=== PATIENT | male | born 1955 | race Caucasian/White ===

== ENCOUNTER 2023-04-03 19:48 | Emergency (ER) | payer OTHER, SELFPAY ==
--- NOTE | ~2023-04-03 | XR_ITS ---
EXAMINATION: XR FOOT, RIGHT CLINICAL INFORMATION: Great toe pain. COMPARISON: None available. TECHNIQUE: AP, lateral, and oblique views of the right foot. FINDINGS: Diffuse osteopenia limits evaluation. Alignment is anatomic. Diffuse interphalangeal joint space narrowing. Mild first MTP joint space narrowing. No destructive bone lesion. No periosteal reaction. No displaced fractures. Large posterior and plantar calcaneal spurs. XR/XR foot RT min 3V IMPRESSION: No acute abnormality.
[2023-04-03 19:51] VITALS: BP 144/75; PULSE 105; RESP 18; TEMP 37.2; O2SAT 94; BMI 31.6
--- NOTE | 2023-04-03 20:00 | ED_ITS ---
HPI - General Adult General Chief complaint: Extremity Problem Stated complaint: R toe pain Time Seen by Provider: 04/03/23 22:28 Source: patient Mode of arrival: ambulatory Limitations: no limitations History of Present Illness HPI narrative: Patient comes to the emergency room complaining of an embedded toenail on the right great toe that it is infected. It has been present for about 4 days. Denies fever chills Related Data Home Medications Medication Instructions Recorded Confirmed magnesium citrate ml PO 10/19/21 10/19/21 Previous Rx's Medication Instructions Recorded allopurinol 300 mg tablet 300 mg PO DAILY #90 tabs 10/19/21 amlodipine 2.5 mg tablet 2.5 mg PO DAILY #90 tabs 10/19/21 clotrimazole 1 % topical cream 1 appl topical QAM AND QHS #30 10/19/21 grams gabapentin 300 mg capsule 300 mg PO BID 90 days #180 caps 10/19/21 atorvastatin 40 mg tablet 40 mg PO BEDTIME #90 tabs 03/23/22 calcium carbonate 200 mg calcium 200 mg PO DAILY #90 tabs 03/23/22 (500 mg) chewable tablet (Antoine-Gest Antacid) docusate sodium 100 mg capsule 100 mg PO BID #180 caps 03/23/22 fluoxetine 40 mg capsule 40 mg PO BEDTIME #90 caps 03/23/22 lisinopril 40 mg tablet 40 mg PO DAILY #90 tabs 03/23/22 sennosides 8.6 mg tablet (senna) 17.2 mg PO DAILY PRN for 08/03/22 constipation #60 tabs methocarbamol 750 mg tablet 750 mg PO BEDTIME PRN for pain #30 09/13/22 tabs acetaminophen 500 mg tablet 500 mg PO Q6H PRN for pain #90 tabs 11/21/22 cephalexin 500 mg capsule 500 mg PO BID #14 caps 04/04/23 doxycycline hyclate 100 mg tablet 100 mg PO BID #14 tabs 04/04/23 Allergies Allergy/AdvReac Type Severity Reaction Status Date / Time No Known Allergies Allergy Verified 10/19/21 14:59 Review of Systems Review of Systems: Constitutional : No Weight loss, No Fever, No Chills, No Night Sweats, No Fatigue, No Malaise ENT/Mouth : No Hearing loss, No Ear Pain, No Nasal Congestion, No Sinus Pain, No Hoarseness, No sore throat, No Rhinorrhea, No Swallowing Difficulty Eyes: No Eye Pain, No Swelling, No Redness, No Foreign Body, No Discharge, No Vision Changes Cardiovascular : No Chest Pain, No SOB, No Dyspnea on Exertion, No Orthopnea, No Edema, No Palpitations Respiratory : No Cough, No Sputum, No Wheezing, No Smoke Exposure, No Dyspnea Gastrointestinal : No Nausea, No Vomiting, No Diarrhea, No Constipation, No abdominal Pain, No Hematochezia, No Melena Genitourinary : no irregular bleeding, No Dysuria, No Urinary Frequency, No Hematuria, No Urinary Incontinence, No Urgency, No Flank Pain, No Urinary Flow Changes, No Hesitancy Musculoskeletal : No joint pain, No Myalgias, No Joint Swelling Skin : Complaining of an infected toenail Neuro : No Weakness, No Numbness, No Paresthesias, No Loss of Consciousness, No Dizziness, No Headache Psych : No Anxiety/Panic, No Depression, No SI/HI/AH/VH, No Social Issues, Heme/Lymph: No Bruising, No Bleeding,No Lymphadenopathy Endocrine : No Polyuria, No Polydipsia, No Temperature Intolerance [facility] Past Medical History Medical History HTN (hypertension) Skin cancer Family History Family History (Updated 10/19/21 @ 14:33 by Alejandra Rodirguez CMA) Mother Breast cancer Father Alcoholism Social History Social History (Updated 10/19/21 @ 14:33 by Alejandra Rodriguez CMA) Household Members: Children Housing: House Alcohol intake: never Patient Tobacco Use Status: Never used Tobacco Advance Directives: No Advance Directives Information Provided: No Physical Exam ED Vital Signs: Vital Signs - 24 hr 04/03/23 19:51 Temperature 98.9 F Pulse Rate 105 H Respiratory Rate 18 Blood Pressure 144/75 H Pulse Oximetry 94 Oxygen Delivery Method Room Air BMI result Body Mass Index 31.6 Const Other: Appearance: Alert. Oriented X3. No acute distress. Eyes: Pupils equal, round and reactive to light. ENT: Pharynx normal. Neck: Normal inspection. Neck supple. No lymph nodes noted. No crepitus CVS: Normal heart rate and rhythm. Pulses normal. Normal S1 and S2 Respiratory: No respiratory distress. Breath sounds normal. No Wheezing. No rales Abdomen: Soft and nontender. No rigidity. No distention. Skin: Patient has an infected and bedded toenail on the great toe, there is pus present Extremities: No lower extremity edema. No Lacerations. No Rash Neuro: Oriented X 3. No motor deficit. No sensory deficit. Moving all extre mities. No slurred speech. CN 2 through 12 grossly intact Psych: calm, cooperative, normal affect Course Course Course Narrative: 67-year-old male presents for evaluation of right great toe pain. Patient denies any injury. Appears to have a paronychia to the lateral aspect. Plan for x-ray of the toe Medications Administered Discontinued Medications Generic Name Dose Route Start Last Admin Trade Name Freq PRN Reason Stop Dose Admin Lidocaine HCl 10 ml 04/03/23 22:54 04/03/23 23:28 Lidocaine Hcl 2% 2 Ml Vial INFILTRATI 04/03/23 22:55 10 ml ONCE ONE Administration Medical Decision Making Medical Decision Making [facility] Narrative: -patient's toe was anesthetized with 2% lidocaine without epinephrine -1/4 of the lateral aspect of the toenail of the great toe was removed, patient tolerated well the procedure. Bacitracin was applied. Also, patient was given p.o. doxycycline and ceftriaxone -patient was instructed to have close follow-up with his wilderness guide, patient is at high risk of further notes getting imbedded Discharge Plan Discharge Clinical Impression: Embedded toenail, Cellulitis Patient Disposition: Home, Self-Care Instructions: Ingrown Nail (ED) Additional Instructions: Please follow-up with your primary care physician tomorrow. If you have any worsening or new symptoms, please return to the emergency room or call 911 Prescriptions: New cephalexin 500 mg capsule 500 mg PO BID Qty: 14 0RF doxycycline hyclate 100 mg tablet 100 mg PO BID Qty: 14 0RF No Action atorvastatin 40 mg tablet 40 mg PO BEDTIME Qty: 90 1RF fluoxetine 40 mg capsule 40 mg PO BEDTIME Qty: 90 1RF lisinopril 40 mg tablet 40 mg PO DAILY Qty: 90 1RF calcium carbonate [Antoine-Gest Antacid] 200 mg calcium (500 mg) tablet,chewable 200 mg PO DAILY Qty: 90 1RF docusate sodium 100 mg capsule 100 mg PO BID Qty: 180 1RF sennosides [senna] 8.6 mg tablet 17.2 mg PO DAILY PRN (Reason: for constipation) Qty: 60 0RF methocarbamol 750 mg tablet 750 mg PO BEDTIME PRN (Reason: for pain) Qty: 30 0RF acetaminophen 500 mg tablet 500 mg PO Q6H PRN (Reason: for pain) Qty: 90 0RF magnesium citrate Solution PO allopurinol 300 mg tablet 300 mg PO DAILY Qty: 90 1RF amlodipine 2.5 mg tablet 2.5 mg PO DAILY Qty: 90 1RF clotrimazole 1 % cream 1 appl topical QAM AND QHS Qty: 30 0RF gabapentin 300 mg capsule 300 mg PO BID 90 Days Qty: 180 1RF
[2023-04-04] MEDS: Bacitracin Oint 0.9 GM PACKET 1 APPL TOPICAL (00:19)
[2023-04-04] MEDS: Doxycycline Monohydrate 100 MG CAPSULE PO (00:19)
[2023-04-04] MEDS: cephALEXin 500 MG CAPSULE PO (00:19)
== END 2023-04-04 00:37 | disposition home or self-care (01) ==
PROVIDERS: Emergency Provider Emergency Medicine; PCP Internal Medicine
DX: L60.0 Ingrowing nail (principal); L03.031 Cellulitis of right toe; Z79.899 Other long term (current) drug therapy
CPT/HCPCS: 11750; 11765; 73630; 99282; 99284

== ENCOUNTER 2025-07-23 13:00 | Emergency (ER) | payer MEDICARE, MEDICAID, SELFPAY ==
--- NOTE | ~2025-07-23 | XR_ITS ---
EXAMINATION: XR HIP 1 VIEW RIGHT WITH PELVIS HISTORY: pain, injury COMPARISON: There are no prior studies available for comparison. FINDINGS: Two AP views of the pelvis and two views of the right hip are submitted. Osseous mineralization is normal. There is no fracture or dislocation. There is mild osteoarthritis of both hips with joint space narrowing and osteophyte formation. The soft tissues are unremarkable. XR/XR hip RT w PEL1V IMPRESSION: No evidence of fracture of the right hip. Electronically signed by: Jos Grimes MD 07/23/2025 01:56 PM EDT
--- NOTE | ~2025-07-23 | CT_ITS ---
EXAMINATION: CT CERVICAL SPINE WITHOUT CONTRAST CLINICAL INFORMATION: Fall, head strike COMPARISON: None available. TECHNIQUE: Spiral CT imaging of the cervical spine performed in axial plane without contrast. Multiplanar reformatted images were constructed from the axial data set. This CT examination was performed using dose optimization techniques as appropriate, variously including the following: *Automated exposure control *Adjustment of mA and/or kV according to patient size (this includes techniques or standardized protocols for targeted exams where dose is matched to indication/reason for exam; i.e. extremities or head) *Use of iterative reconstruction technique FINDINGS: CORONAL ALIGNMENT: -There is a minimal right convex scoliosis. SAGITTAL ALIGNMENT: -There is a minimal reversal of the normal lordosis. -There is no traumatic subluxation. C1-C2 AND CRANIOCERVICAL JUNCTION: -Intact and aligned. There are advanced degenerative changes in the atlantoaxial joint. VERTEBRAL BODIES AND FACETS: -There is no fracture, compression deformity, or suspicious bone lesion. -There is normal facet alignment bilaterally. There are multilevel degenerative facet changes. -There are large ventral vertebral and disc osteophytes spanning C1-2, and C4-T1. -There is ossification of the posterior longitudinal ligament at C2-3, C3-4, and to lesser degree at C4-5. This results in at least moderate central canal stenosis at these levels. Dated there appears to be partial disc space bony fusion inferiorly of C5-T1. -Above findings are suspicious for underlying DISH. DISCS: -There is moderate multilevel disc degeneration present throughout the cervical region. CENTRAL CANAL: -Evaluation limited by modality. See above. PREVERTEBRAL AND PARAVERTEBRAL SOFT TISSUES: -There is no prevertebral or paravertebral soft tissue swelling, edema, or abnormal fluid collection. -There has been a subtotal thyroidectomy. There is some residual thyroid tissue left posterior lobe. -There is a retropharyngeal course of the left ICA proximally. -There is an oval mass superficial left parotid gland measuring 2.9 x 2.8 cm in axial plane. LUNG APICES: -Not included on the imaging. CT/CT cervical spine wo IV con IMPRESSION: 1. No CT evidence of acute cervical spine fracture or injury. 2. Findings in keeping with DISH. Ossification of the posterior longitudinal ligament present at C2-3 and C3-4, causing at least moderate and possibly severe central canal stenosis at these levels. 3. There is partial bony fusion of the ventral disc spaces of C5-T1 by bridging vertebral and disc osteophytes. 4. There is a partially imaged oval mass in the left superficial parotid gland measuring 2.9 x 2.8 cm. Differential includes benign mixed tumor, Warthin's tumor, or parotid malignancy. Correlate with any known history. 5. There has been a subtotal thyroidectomy. There is some residual thyroid tissue in the left posterior thyroid region. Electronically signed by: Enoch Palmer MD 07/23/2025 02:35 PM EDT
--- NOTE | ~2025-07-23 | CT_ITS ---
EXAMINATION: CT HEAD WITHOUT IV CONTRAST HISTORY: fall, HS. TECHNIQUE: Unenhanced helical CT of the head was performed per standard departmental protocol. Coronal and sagittal reformats of the head were also evaluated. One or more of the following techniques was used for dose reduction: Automated exposure control, adjustment of the mA and/or kV according to patient size, use of iterative reconstruction technique. DLP: 1102 mGy-cm COMPARISON: There are no prior studies available for comparison. FINDINGS: BRAIN: There is diffuse prominence of the ventricular system and cortical sulci, consistent with atrophy. Periventricular and subcortical white matter hypodensities are noted which are nonspecific, but often seen in the setting of small vessel ischemic disease. There is no mass effect or midline shift. No intra- or extra-axial fluid collections are identified. SINUSES: There is hyperdense fluid in the bilateral sphenoid sinuses. The mastoid air cells and middle ear cavities are well pneumatized. ORBITS: The visualized orbits are unremarkable. BONES/SOFT TISSUES: There is a partially imaged 2.8 cm mass of the left parotid gland. The calvarium is intact. No suspicious lytic or sclerotic lesions. CT/CT head/brain wo IV con IMPRESSION: 1. No acute intracranial abnormality. 2. Hyperdense fluid in the bilateral sphenoid sinuses. 3. 2.8 cm partially imaged left parotid mass. Clinical correlation is recommended. ENT evaluation is suggested. Electronically signed by: Jos Grimes MD 07/23/2025 02:20 PM EDT
--- NOTE | 2025-07-23 13:15 | ED_ITS ---
HPI - General Adult General Chief complaint: Fall Stated complaint: FALL,?HS,-LOC,-THINNER,R HIP PAIN PER EMS Time Seen by Provider: 07/23/25 13:15 Source: patient, family (patient's son) and EMS Mode of arrival: EMS Limitations: no limitations History of Present Illness ED Provider: Sumi Rivas PA-C HPI narrative: This is a 70 year old male with a history of PTEN gene mutation causing tumors, chronic knee and low back pain, gout, and hypertension that presents for evaluation post mechanical fall. He reports that around 11:30 am he was lowering himself into his wheelchair when he missed and fell. He states that his right hip is the primary location that he has pain. He is unsure if he hit his head but he denies headache, dizziness, nausea, vomiting, or vision changes. He was unable to get up so he was transferred here via ambulance. He is able to ambulate with a cane at baseline but also uses a wheelchair. He has a history of many tumors and he is nervous that he may have another tumor in the right hip where he fell. Related Data Home Medications ?Medication ?Instructions ?Recorded ?Confirmed allopurinol 300 mg tablet 300 mg PO BEDTIME 07/23/25 1 amlodipine 5 mg tablet 5 mg PO BEDTIME 07/23/2507/09 cholecalciferol (vitamin D3) 50 50 mcg PO BEDTIME 07/0907/23/25 mcg (2,000 unit) tablet gabapentin 300 mg capsule 600 mg PO BEDTIME 07/23/25 1 levothyroxine 175 mcg tablet 175 mcg PO BEDTIME 07/23/25 lisinopril 40 mg tablet 40 mg PO BEDTIME 07/23/25 trazodone 100 mg tablet 100 mg PO BEDTIME 07/23/25 1 Previous Rx's ?Medication ?Instructions ?Recorded atorvastatin 40 mg tablet 40 mg PO BEDTIME #90 tabs fluoxetine 40 mg capsule 40 mg PO BEDTIME #90 caps methocarbamol 750 mg tablet 750 mg PO BEDTIME PRN for pain #30 09/13/22 tabs Allergies Allergy/AdvReac Type Severity Reaction Status Date / Time No Known Allergies Allergy Verified 07/23/25 13:19 Review of Systems Constitutional: Constitutional: Reports as per HPI Eyes: Eyes: Reports as per HPI ENT: Reports as per HPI Cardiovascular: Cardiovascular: Reports as per HPI Respiratory: Respiratory: Reports as per HPI Gastrointestinal: Gastrointestinal: Reports as per HPI Genitourinary: Genitourinary: Reports as per HPI Musculoskeletal: Musculoskeletal: Reports as per HPI Integumentary/Breasts: Skin/Breast: Reports as per HPI Neurologic: Reports as per HPI Psychiatric: Psychiatric: Reports as per HPI Endocrine: Endocrine: Reports as per HPI Hematologic/Lymphatic: Hematologic/Lymphatic: Reports as per HPI Allergic/Immunologic: Allergic/Immunologic: Reports as per HPI [facility] Past Medical History Attestation statement: The following information was validated with the patient. (all information validated with the patient's son) Source: old records reviewed, obtained from family (patient's son provided additional history and confirmed the history provided by the patient. ) and nursing notes reviewed Medical History Skin cancer HTN (hypertension) Family History Family History Mother Breast cancer Father Alcoholism Social History Social History Household Members: Children Housing: House Alcohol intake: never Patient Tobacco Use Status: Never used Tobacco Smoked in Last 30 Days: No Use of substances other than those prescribed or required for medical reasons: No Advance Directives: Yes Advance Directives on File: Yes Advance Directives Date on File: 07/24/25 Physical Exam ED Vital Signs: Vital Signs - 24 hr 07/25/25 22:03 07/26/25 13:27 07/26/25 17:42 Temperature 98.7 F 98.0 F 98.9 F Pulse Rate 83 81 88 Respiratory Rate 16 18 18 Blood Pressure 131/57 L 102/57 L 123/62 Pulse Oximetry 93 97 94 Oxygen Delivery Method Room Air Room Air Room Air BMI result Body Mass Index 44.2 Const General: cooperative, no acute distress, alert and awake Nutritional Appearance: well nourished Orientation/consciousness: patient oriented x3 HENMT Head: Yes normal to inspection and Yes atraumatic Ears: external ears normal and hearing grossly impaired bilaterally General nose exam: Normal external nose present, no nasal discharge noted and no epistaxis Face and sinus: Yes normal facial exam, No abrasion and No laceration Mouth: no drooling and no muffled voice Eyes General: appearance normal, both eyes and all related structures Periorbital: periorbital findings normal Eyelids: Yes eyelids normal Conjunctivae: conjunctivae normal Pupils: Equal, round and reactive pupils present EOM: EOMs intact bilaterally Neck Neck: Yes normal visual inspection and Yes full ROM Resp Effort & Inspection: normal respiratory effort and able to speak in complete sentences Skin Trauma: abrasion (Left elbow) Neuro General: patient oriented x3 and moves all extremities Cranial nerves: Yes Equal, round and reactive pupils present Cognition (Neuro): normal cognition Extrem General: Yes normal to inspection and Yes capillary refill normal Right lower extremity: hip/thigh Details: tenderness Location: of the hip Left lower extremity: normal to inspection Psych Appearance: grossly normal Mental Status: mental status grossly normal Affect: normal affect Attitude: cooperative Thought process: Normal thought process present Thought content: Normal thought content present Insight: Good insight present (Psych) Course Course Course Narrative: 6:35pm: christa Dickey Patient was supposed to be discharged but son called and told hospital he would not accept patient back into the home and he can not care for the patient. So ambulance refused to bring patient home. Reevaluation(s) Reevaluation #1: Physician observation continued. Uneventful night. Vital signs stable. No complaints from nursing overnight. Med reconciliation reviewed and done. Pending disposition. Will continue to monitor. Time: 07:19 Reevaluation #2: Time: 10:00 Date: 07/25/25 Provider: RANULFO Sandy Patient in physician observation for case management needs. Pending PT/CM disposition. Reevaluation #3: Physician observation continued. Patient is not in any distress. Patient is awaiting physical therapy and case management. Vital signs stable. Time: 10:06 Additional Reevaluation(s): Observation care revealed that patient does not meet medical necessity for hospitalization. Final disposition discussed with patient. The patient completed observation care at 1410 on 07/26/25. Patient to be discharged home per case management. Medications Administered Generic Name Dose Route Start Last Admin Trade Name Freq PRN Reason Stop Dose Admin Allopurinol 300 mg 07/24/25 21:00 07/25/25 20:43 Allopurinol 300 Mg Tablet PO 300 mg BEDTIME RONNIE Administration Amlodipine Besylate 5 mg 07/24/25 21:00 07/25/25 20:43 Amlodipine Besylate 5 Mg Tablet PO 5 mg BEDTIME RONNIE Administration Protocol Atorvastatin Calcium 40 mg 07/24/25 21:00 07/25/25 20:43 Atorvastatin Calcium 40 Mg Tablet PO 40 mg BEDTIME ORNNIE Administration Fluoxetine HCl 40 mg 07/24/25 21:00 07/25/25 20:44 Fluoxetine Hcl 20 Mg Capsule PO 40 mg BEDTIME RONNIE Administration Gabapentin 600 mg 07/24/25 21:00 07/25/25 20:43 Gabapentin 300 Mg Capsule PO 600 mg BEDTIME RONNIE Administration Ibuprofen 600 mg 07/24/25 09:31 07/26/25 00:47 Ibuprofen 600 Mg Tablet PO 600 mg Q8H PRN Administration Pain, Moderate(Pain Scale 4-6) Levothyroxine Sodium 175 mcg 07/24/25 21:00 07/25/25 20:43 Levothyroxine Sodium 175 Mcg Tablet PO 175 mcg BEDTIME RONNIE Administration Lisinopril 40 mg 07/24/25 21:00 07/25/25 20:43 Lisinopril 40 Mg Tablet PO 40 mg BEDTIME RONNIE Administration Protocol Methocarbamol 750 mg 07/23/25 23:23 07/24/25 02:05 Methocarbamol 750 Mg Tablet PO 750 mg BEDTIME PRN Administration for pain Morphine Sulfate 15 mg 07/24/25 09:31 07/26/25 00:47 Morphine Sulfate Immed Release 15 Mg Tablet PO 15 mg Q6H PRN Administration Pain, Severe (Pain Scale 7-10) Polyethylene Glycol 17 gm 07/24/25 10:47 07/24/25 12:49 Polyethylene Glycol 3350 17 Gm Powd.Pack PO 17 gm DAILY PRN Administration Constipation Senna 8.6 mg 07/24/25 10:47 07/24/25 12:49 Sennosides 8.6 Mg Tablet PO 8.6 mg DAILY PRN Administration Constipation Trazodone HCl 100 mg 07/24/25 21:00 07/25/25 20:43 Trazodone Hcl 100 Mg Tablet PO 100 mg BEDTIME RONNIE Administration Vitamin D 50 mcg 07/24/25 21:00 07/25/25 20:43 Cholecalciferol (Vitamin D3) 25 Mcg Tablet PO 50 mcg BEDTIME RONNIE Administration Discontinued Medications Generic Name Dose Route Start Last Admin Trade Name Zoltan PRN Reason Stop Dose Admin Acetaminophen 650 mg 07/23/25 18:09 07/23/25 18:16 Acetaminophen 325 Mg Tablet PO 07/23/25 18:10 650 mg ONCE ONE Administration Lidocaine 1 patch 07/24/25 15:08 07/24/25 15:58 Lidocaine 4 % Patch Adh..Patch TRANSDERMA 07/24/25 15:09 1 patch ONCE ONE Administration Protocol Mineral Oil 133 ml 07/24/25 10:47 07/24/25 13:58 Mineral Oil Enema 133 Ml Enema GA 07/24/25 10:48 133 ml ONCE ONE Administration Morphine Sulfate 15 mg 07/23/25 14:55 07/23/25 15:08 Morphine Sulfate Er 15 Mg Tablet.Er PO 07/23/25 14:56 15 mg ONCE ONE Administration Medical Decision Making Medical Decision Making [facility] Narrative: Patient is a 70 year old assigned male at with a history of PTEN gene mutation causing tumors, chronic knee and low back pain, gout, and hypertension presenting to the emergency department today with right hip pain after a fall. Patient's physical exam was as noted in the physical exam portion of this note. Patient's right hip and pelvis x-ray showed no acute process. 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 I confirmed with the patient that he did not know about the incidentally found mass and that he is not having any issues with speech, swallowing, eating, or breathing. I explained my physical exam findings as well as all test results to the patient and the patient's son. I answered all questions asked by the patient and the patient's son. Patient stated that given the level of pain he is in - he is concerned about being able to function properly at home. Patient placed in observation at 1455. Patient pending PT and CM evaluations. Differential Diagnosis Differential Diagnoses: The differential diagnosis associated with the presentation includes Fall Hip pain Contusion Fracture Admission/Observation Consideration of admission/observation: Escalation of care including admission/observation considered Patient would have been admitted to the hospital had his work up had any f indings where hospital admission was appropriate and his clinical presentation warranted hospital admission. Lab Data [facility] Lab Attestation statement: I reviewed the patient's lab results. My interpretation of these studies and their corresponding values is that they are grossly normal. Labs: Lab Results 07/23/25 Range/Units 15:24 Influenza Type A (PCR) NEGATIVE (Negative) Influenza Type B (PCR) NEGATIVE (Negative) RSV RNA Qual (PCR) NEGATIVE (Negative) SARS-CoV-2 RNA (RT-PCR) NEGATIVE (Negative) Independent Interpretation I performed an independent interpretation of an: Plain X-Ray and CT Scan Interpretation: My interpretation is in agreement with the radiologist's impression of these imaging studies. Reason for Exam: pain, injury EXAMINATION: XR HIP 1 VIEW RIGHT WITH PELVIS HISTORY: pain, injury COMPARISON: There are no prior studies available for comparison. FINDINGS: Two AP views of the pelvis and two views of the right hip are submitted. Osseous mineralization is normal. There is no fracture or dislocation. There is mild osteoarthritis of both hips with joint space narrowing and osteophyte formation. The soft tissues are unremarkable. XR/XR hip RT w PEL1V IMPRESSION: No evidence of fracture of the right hip. Electronically signed by: Jos Grimes MD 07/23/2025 01:56 PM EDT Dictated By: Jos Grimes MD Signed By: Electronically signed by Jos Grimes MD 07/23/25 1356 Report Number: [id number]: Total DLP = 1109.00 mGy-cm Reason for Exam: fall, HS EXAMINATION: CT HEAD WITHOUT IV CONTRAST HISTORY: fall, HS. TECHNIQUE: Unenhanced helical CT of the head was performed per standard departmental protocol. Coronal and sagittal reformats of the head were also evaluated. One or more of the following techniques was used for dose reduction: Automated exposure control, adjustment of the mA and/or kV according to patient size, use of iterative reconstruction technique. DLP: 1102 mGy-cm COMPARISON: There are no prior studies available for comparison. FINDINGS: BRAIN: There is diffuse prominence of the ventricular system and cortical sulci, consistent with atrophy. Periventricular and subcortical white matter hypodensities are noted which are nonspecific, but often seen in the setting of small vessel ischemic disease. There is no mass effect or midline shift. No intra- or extra-axial fluid collections are identified. SINUSES: There is hyperdense fluid in the bilateral sphenoid sinuses. The mastoid air cells and middle ear cavities are well pneumatized. ORBITS: The visualized orbits are unremarkable. BONES/SOFT TISSUES: There is a partially imaged 2.8 cm mass of the left parotid gland. The calvarium is intact. No suspicious lytic or sclerotic lesions. CT/CT head/brain wo IV con IMPRESSION: 1. No acute intracranial abnormality. 2. Hyperdense fluid in the bilateral sphenoid sinuses. 3. 2.8 cm partially imaged left parotid mass. Clinical correlation is recommended. ENT evaluation is suggested. Electronically signed by: Jos Grimes MD 07/23/2025 02:20 PM EDT Dictated By: Jos Grimes MD Signed By: Electronically signed by Jos Grimes MD 07/23/25 1420 Reason for Exam: fall, HS EXAMINATION: CT CERVICAL SPINE WITHOUT CONTRAST CLINICAL INFORMATION: Fall, head strike COMPARISON: None available. TECHNIQUE: Spiral CT imaging of the cervical spine performed in axial plane without contrast. Multiplanar reformatted images were constructed from the axial data set. This CT examination was performed using dose optimization techniques as appropriate, variously including the following: *Automated exposure control *Adjustment of mA and/or kV according to patient size (this includes techniques or standardized protocols for targeted exams where dose is matched to indication/reason for exam; i.e. extremities or head) *Use of iterative reconstruction technique FINDINGS: CORONAL ALIGNMENT: -There is a minimal right convex scoliosis. SAGITTAL ALIGNMENT: -There is a minimal reversal of the normal lordosis. -There is no traumatic subluxation. C1-C2 AND CRANIOCERVICAL JUNCTION: -Intact and aligned. There are advanced degenerative changes in the atlantoaxial joint. VERTEBRAL BODIES AND FACETS: -There is no fracture, compression deformity, or suspicious bone lesion. -There is normal facet alignment bilaterally. There are multilevel degenerative facet changes. -There are large ventral vertebral and disc osteophytes spanning C1-2, and C4- T1. -There is ossification of the posterior longitudinal ligament at C2-3, C3-4, and to lesser degree at C4-5. This results in at least moderate central canal stenosis at these levels.Dated there appears to be partial disc space bony fusion inferiorly of C5-T1. -Above findings are suspicious for underlying DISH. DISCS: -There is moderate multilevel disc degeneration present throughout the cervical region. CENTRAL CANAL: -Evaluation limited by modality. See above. PREVERTEBRAL AND PARAVERTEBRAL SOFT TISSUES: -There is no prevertebral or paravertebral soft tissue swelling, edema, or abnormal fluid collection. -There has been a subtotal thyroidectomy. There is some residual thyroid tissue left posterior lobe. -There is a retropharyngeal course of the left ICA proximally. -There is an oval mass superficial left parotid gland measuring 2.9 x 2.8 cm in axial plane. LUNG APICES: -Not included on the imaging. CT/CT cervical spine wo IV con IMPRESSION: 1. No CT evidence of acute cervical spine fracture or injury. 2. Findings in keeping with DISH. Ossification of the posterior longitudinal ligament present at C2-3 and C3-4, causing at least moderate and possibly severe central canal stenosis at these levels. 3. There is partial bony fusion of the ventral disc spaces of C5-T1 by bridging vertebral and disc osteophytes. 4. There is a partially imaged oval mass in the left superficial parotid gland measuring 2.9 x 2.8 cm. Differential includes benign mixed tumor, Warthin's tumor, or parotid malignancy. Correlate with any known history. 5. There has been a subtotal thyroidectomy. There is some residual thyroid tissue in the left posterior thyroid region. Electronically signed by: Enoch Palmer MD 07/23/2025 02:35 PM EDT Dictated By: Enoch Palmer MD Signed By: Electronically signed by Enoch Palmer MD 07/23/25 2435 Radiology Impression Discussion of test interpretation with radiology: I have reviewed the radiologist's reading. Independent Historian Clinical information obtained from an independent historian. History obtained from or confirmed by: EMS (EMS provided additional history and confirmed the history provided by the patient. ) and Other (Patient's son provided additional history and confirmed the history provided by the patient. ) Critical Care Time Critical Care Time Critical Care Time: Yes Total Critical Care Time: 32 Attestation: I spent 32 minutes of Critical Care Time with this patient. This does not include time spent on separately reported billable procedures. 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 Given your medical history - it is CRUCIAL you follow up with your primary care provider AND an ENT specialist about this. Prescriptions: No Action atorvastatin 40 mg tablet 40 mg PO BEDTIME Qty: 90 1RF fluoxetine 40 mg capsule 40 mg PO BEDTIME Qty: 90 1RF methocarbamol 750 mg tablet 750 mg PO BEDTIME PRN (Reason: for pain) Qty: 30 0RF levothyroxine 175 mcg tablet 175 mcg PO BEDTIME amlodipine 5 mg tablet 5 mg PO BEDTIME trazodone 100 mg tablet 100 mg PO BEDTIME gabapentin 300 mg capsule 600 mg PO BEDTIME allopurinol 300 mg tablet 300 mg PO BEDTIME lisinopril 40 mg tablet 40 mg PO BEDTIME cholecalciferol (vitamin D3) 50 mcg (2,000 unit) tablet 50 mcg PO BEDTIME Referrals: [facility] [Provider Group, Ear, Nose, Throat] Referral Note: Call to establish and follow up with an ENT specialist about your left parotid gland mass. [facility] [Outside] - 1 day Referral Note: [facility] Svetlana Novak MD [Physician, Internal Medicine] Print Language: Jamaican
[2025-07-23 13:16] VITALS: BP 130/67; PULSE 69; RESP 22; TEMP 36.4; O2SAT 94; BMI 44.2
[2025-07-23] MEDS: Morphine Sulfate ER 15 MG TABLET.ER PO (15:08)
[2025-07-23 15:32] VITALS: BP 118/59; PULSE 69; RESP 18; O2SAT 94
[2025-07-23 16:08] LABS: Resp Syncy Virus RNA Qual PCR NEGATIVE (Negative); SARS COV2 PCR INHOUSE NEGATIVE (Negative)
[2025-07-23 17:58] VITALS: BP 141/71; PULSE 83; RESP 18; O2SAT 97
--- NOTE | 2025-07-23 18:01 | PC.NURSE ---
Pt transferred into hospital bed for comfort. Pt son at bedside, pt states son is autistic and requesting for his son to remain with him while in ER because he is his only computer methods analyst.
--- NOTE | 2025-07-23 19:04 | PC.NURSE ---
RE MED REC: pt unable to elaborate on his daily meds. Son to bring in med list from home.
--- NOTE | 2025-07-23 19:36 | PC.NURSE ---
Addendum entered by Vicki Ervin RN 07/23/25 19:43: pictures taken from Enoch's phone regarding Dad's condition Original Note: Enoch [phone] oldest son, left number, can accept calls anytime RE: Plan of care for patient.
[2025-07-23 20:16] VITALS: BP 128/59; PULSE 64; RESP 16; TEMP 36.9; O2SAT 96
--- NOTE | 2025-07-23 20:51 | PC.NURSE ---
Pt's son Enoch supplied home med list.
--- NOTE | 2025-07-23 21:31 | PHA.MEDREC ---
Addendum entered by Bj Jefferson, PharmD 07/23/25 21:51: MED REC CHECKED BY [facility] Original Note: Pharmacy Consult ? Medication Reconciliation Pharmacy has completed the medication reconciliation. Patient son gave patient list of medications to a nurse. Patent list in visit notes. Utilized list and claims to confirm med list. Patient confirmed he is taking vitamin D3 50mcg. Patient last had his medications last night , he takes all his medications at night even the Levothyroxine 175 mcg.
--- NOTE | 2025-07-23 22:15 | PC.NURSE ---
Med rec completed by pharmacy, provider Montserrat asked to order.
[2025-07-23 22:18] VITALS: BP 112/53; PULSE 59; RESP 16; TEMP 36.8; O2SAT 90
[2025-07-24 06:16] VITALS: BP 97/58; PULSE 55; RESP 18; TEMP 36.6; O2SAT 93
[2025-07-24] MEDS: Morphine Sulfate Immed Release 15 MG TABLET PO ×2 (10:26→17:25)
--- NOTE | 2025-07-24 10:33 | MHC.CM.ED ---
Received case management consult from Sumi [facility]. Patient came to the ER due to fall. Physical therapy eval completed. Short term rehab is recommended. Met with patient in regards to discharge planning. Patient is very hard of hearing. 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 However his other children are currently caring for him. PCP verified. Copy of HCP obtained from [facility]. Patient is agreeable to STR. Patient aware referral will be broadcasted and bed offers will be discussed with patient. Continue to monitor for d/c needs.
--- NOTE | 2025-07-24 11:43 | PC.NURSE ---
Pt's pain is dificult to manage. Has been unable to complete am care d/t pain and doesn't want to move much in the bed. PT was unable to complete their work. Even making adjustments to bed induces pain. Provider has ordered additional PRN Meds but these aren't suficient.
--- NOTE | 2025-07-24 12:09 | MHC.CM.ED ---
Addendum entered by Josefa Guevara 07/24/25 15:04: [facility] unable to offer a bed. [facility] still reviewing. Original Note: Received case management consult from Sumi WINC[facility]. Patient came to the ER due to fall. Physical therapy eval completed. Short term rehab is recommended. Met with patient in regards to discharge planning. Patient is very hard of hearing. 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 However his other children are currently caring for him. PCP verified. Copy of HCP obtained from [facility]. Patient is agreeable to rehab. Has Medicare and [facility]. No qualifying hospital stay. Referral made to all 3 acute rehab facilities. Continue to monitor for d/c needs.
[2025-07-24 13:44] VITALS: BP 110/53; PULSE 67; RESP 18; TEMP 36.6; O2SAT 95
[2025-07-24] MEDS: Lidocaine 4 % Patch ADH..PATCH 1 PATCH TRANSDERMA (15:58)
[2025-07-24 19:54] VITALS: BP 132/77; PULSE 83; RESP 18; TEMP 36.8; O2SAT 93
[2025-07-24 21:40] VITALS: BP 132/77
[2025-07-24 21:46] VITALS: BP 132/77
[2025-07-25 02:51] VITALS: RESP 16
[2025-07-25 06:30] VITALS: BP 140/79; PULSE 90; RESP 18; TEMP 37.2; O2SAT 93
--- NOTE | 2025-07-25 08:12 | PC.NURSE ---
Patient eating breakfast tray. No additional needs at this time. Care ongoing by this RN.
--- NOTE | 2025-07-25 10:46 | PC.NURSE ---
Physical Therapist (Sj Cox) at bedside speaking with patient, to attempt PT evaluation. Past PT evaluations have been unsuccessful due to pain. Patient has been sleeping this morning (other than eating breakfast this AM). Reports current pain without movement is a 3/10.
[2025-07-25 11:59] VITALS: BP 140/79; PULSE 86; O2SAT 94
--- NOTE | 2025-07-25 12:39 | PC.NURSE ---
Enoch Robbins (son): Requesting updates, is primary floor tech for [facility], along with his brother Kel. Case management notified.
[2025-07-25] MEDS: Morphine Sulfate Immed Release 15 MG TABLET PO (12:52)
--- NOTE | 2025-07-25 13:52 | MHC.CM.PN ---
EMR REVIEWED, CM MET W/PT TO DISCUSS DISPO HE WAS DECLINED BY ACUTE REHABS, PT AGREEABLE TO SNF REFERRAL, PT WOULD GO UNDER MEDICAID BENEFIT, PT AGREEABLE TO BROAD LOCAL REFERAL AND CM WILL FOLLOW-UP W/PT ONCE PT HAS BED OFFER(S), CM WILL CONT TO FOLLOW.
[2025-07-25 15:47] VITALS: BP 149/68; PULSE 78; RESP 20; TEMP 36.6; O2SAT 96
[2025-07-25 22:03] VITALS: BP 131/57; PULSE 83; RESP 16; TEMP 37.1; O2SAT 93
[2025-07-26] MEDS: Morphine Sulfate Immed Release 15 MG TABLET PO (00:47)
--- NOTE | 2025-07-26 01:08 | PC.NURSE ---
pt medicated per MAR for pain
--- NOTE | 2025-07-26 08:46 | MHC.CM.PN ---
CM RECEIVED MESSAGE FROM SNF REFERRAL REPORTING PT'S MH IS SENIOR BUY IN ONLY AND HAS NO SNF BENEFIT ONLY COVERS COPAYS, REF MADE TO [facility] FOR SN/PT, CM WILL FOLLOW-UP W/PT.
--- NOTE | 2025-07-26 11:00 | MHC.CM.PN ---
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 KATE AGREEABLE TO PT DC'ING HOME TOMORROW 07/27 [facility] VIA [facility] FOR BLS TRANSPORT FOR 2:30PM Addendum entered by Alesia Al RN 07/26/25 14:26: CM RECEIVED CALL FROM PT'S NURSE WHO REPORTS PT CALLED SON WHEN AMBULANCE ARRIVED, SON REPORTS IF PT IS DISCHARGED HOME HE WILL SEND HIM DIRECTLY BACK TO ED HE IS UNABLE TO CARE FOR PT AND PT DOES NOT FEEL HE CAN CARE FOR SELF. CM WILL FOLLOW UP W/SON KATE AT [phone]. Original Note: PT DISCHARGING HOME W/[facility] FOR SN/PT FROM ED, PT WILL NEED [facility] FOR BLS TRANSPORT
[2025-07-26 13:27] VITALS: BP 102/57; PULSE 81; RESP 18; TEMP 36.7; O2SAT 97
--- NOTE | 2025-07-26 14:01 | PC.NURSE ---
Pt able to sit up on side of bed for meals, tolerating diet with good PO intake. Pt reports pain in right hip with movement, offered pt PRN medications. Pt declined any medications at this time.
--- NOTE | 2025-07-26 14:36 | PC.NURSE ---
Plans for pt to d/c home with BLS and to receive PT/VNA at home. 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 On EMS arrival pt required x 2 assist from bed to EMS stretcher, while on stretcher pt received call from son, Enoch. Son stated during phone call he will be unable to care for patient and will need pt to be sent back to hospital once home. EMS requesting this scenario writer discuss with CM prior to leaving with pt. Per CM pt transferred back to hospital bed and plans to stay in overflow will be discussed with RACHAEL.
--- NOTE | 2025-07-26 15:56 | MHC.EDTECH ---
peformed ADL'S on patient gave patient a bed bath and changed his bed linen I also put a clean hospital gown. patient also has a new pure wick in place. nurse aware
[2025-07-26 17:42] VITALS: BP 123/62; PULSE 88; RESP 18; TEMP 37.2; O2SAT 94
[2025-07-26 20:57] VITALS: BP 109/42
[2025-07-27] MEDS: Morphine Sulfate Immed Release 15 MG TABLET PO (00:51)
[2025-07-27 01:03] VITALS: BP 131/58; PULSE 81; RESP 16; TEMP 36.8; O2SAT 91
--- NOTE | 2025-07-27 01:04 | MHC.EDTECH ---
pt rang call dobbs to be found with no clothes on, pt states he was unable to reach urinal and voided on himself, floor and bed. urinal was located next to bed. pt bedding and hospital attire changed. pt vitals taken at this time as noted, pt about to put cpap on. pt laying on left side, railing on left side raised. personal belongings and urinal all within reach.
[2025-07-27 05:57] VITALS: BP 115/48; PULSE 85; RESP 18; TEMP 37.1; O2SAT 91
[2025-07-27 09:38] VITALS: BP 144/92; PULSE 87; RESP 20; TEMP 36.3; O2SAT 94
--- NOTE | 2025-07-27 10:57 | PC.NURSE ---
Pt alert and answering questions. Ate his breakfast this morning. Pts linen and clothing changed, male purewick placed for urinary incontinence due to pt having issues with bedside urinal. Pt reporting generalized body pain from bed. No other complaints at this time. Pt requests to rest
--- NOTE | 2025-07-27 11:09 | MHC.EDTECH ---
Assisted patient with personal Hygiene. Changed gown and linen. Applied male Purewick.
--- NOTE | 2025-07-27 13:19 | MHC.CM.PN ---
Pt is discharging home today via BLS/[facility], he will have new [facility] services. This CM spoke with pts son Enoch who will be at the home when pt arrives.
[2025-07-27 15:12] VITALS: BP 140/78; PULSE 85; RESP 16; TEMP 36.8; O2SAT 95
== END 2025-07-27 15:13 | disposition home or self-care (01) ==
PROVIDERS: Physician Assistant Medical; Emergency Provider Emergency Medicine
DX: K11.9 Disease of salivary gland, unspecified (principal); S09.90XA Unspecified injury of head, initial encounter; W05.0XXA Fall from non-moving wheelchair, initial encounter; Y93.9 Activity, unspecified; Y92.9 Unspecified place or not applicable; Y99.9 Unspecified external cause status; M25.551 Pain in right hip; Z03.818 Encounter for observation for suspected exposure to other biological agents ruled out; Z79.899 Other long term (current) drug therapy
CPT/HCPCS: 70450; 72125; 73502; 87637; 97162; 97530; 99285

== ENCOUNTER → 2025-07-23 13:15 | Outpatient (BNV) | payer OTHER, SELFPAY | PROVIDERS: Visit Provider Radiology Diagnostic Radiology | DX: S09.90XA Unspecified injury of head, initial encounter (principal); M48.8X2 Other specified spondylopathies, cervical region; J32.3 Chronic sphenoidal sinusitis; Z90.09 Acquired absence of other part of head and neck; M25.551 Pain in right hip; W19.XXXA Unspecified fall, initial encounter | CPT/HCPCS: 70450; 72125; 73502 ==